=== PATIENT | male | born 1980 | race Caucasian/White ===

== ENCOUNTER 2018-07-12 09:07 | Emergency (ER) | payer OTHER ==
[~2018-07-12 09:07] MED LIST: IBUP800T37 PO; LOR5/325 PO; NO HOME MEDS
[2018-07-12 09:25] VITALS: BP 128/92
--- NOTE | 2018-07-12 09:53 | RADIOLOGY IMAGING REPORT ---
FACILITY: [facility] - [place] PATIENT NAME: Ayan Mason : 1980 MR: [id number] V: [id number] EXAM DATE: ORDERING PHYSICIAN: POP LANGE TECHNOLOGIST: Location: [facility] Patient: Ayan Mason : 1980 Visit/Account:[id number] Date of Sevice: 07/12/2018 HAND COMPLETE LEFT Indication: PAIN, SWELLING Comparison: None. Findings: The phalanges, metacarpal, and carpal bones are intact. The distal radius and ulna are inta ct. There is soft tissue swelling over the dorsal portion of the hand. IMPRESSION: 1. No evidence of fracture or dislocation. 2. Soft tissue swelling of the dorsal aspect of the hand. Report Dictated By: Ayan Gunn at 07/12/2018 9:48 AM Report E-Signed By: Ayan Gunn at 07/12/2018 9:49 AM WSN:[id number]
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
== END 2018-07-12 10:16 | disposition home or self-care (01) ==
LOC: ER 10:12
DX: S60.222A Contusion of left hand, initial encounter (principal)
CPT/HCPCS: 99283